=== PATIENT | female | born 1960 | race Caucasian/White ===

== ENCOUNTER → 2024-03-13 | Outpatient (CLI) | payer MEDICAID, SELFPAY ==
--- NOTE | 2024-03-13 13:00 | XR_ITS ---
Examination: MRI abdomen with intravenous contrast. MRI abdomen without intravenous contrast. Date and time of exam: March 13, 2024 1342 hours INDICATIONS: CT abdomen pelvis November 08, 2023 15 mm indeterminate left adrenal nodule Technique: Multiple axial, sagittal and coronal sections of the abdomen obtained. Transverse images, TR 6020, TE 107. T1 weighted transverse images, TR 582, TE 9.5. T2-weighted sagittal images, TR 4000, TE 105. T2-weighted sagittal images, TR 4000, TE 5. Coronal images, TR 4210, TE 107. Axial and coronal images are obtained post 18 cc intravenous injection, gadolinium. Findings: Hepatomegaly 18 cm No intrahepatic biliary tract dilatation Absent gallbladder No extrahepatic biliary tract distention 12 mm left adrenal nodule with mild enhancement on the postcontrast images No pericaval periaortic lymphadenopathy No hydronephrosis No ascites IMPRESSION: 12 mm probably benign left adrenal nodule, recommend 6 month follow-up CT abdomen postcontrast
== END | disposition home or self-care (01) ==
LOC: SMRI 12:43
PROVIDERS: Referring Provider Nurse Practitioner Family; Visit Provider Nurse Practitioner Family
DX: E27.9 Disorder of adrenal gland, unspecified (principal)
CPT/HCPCS: 74183; A9579

== ENCOUNTER → 2025-01-21 | Outpatient (CLI) | payer MEDICAID, SELFPAY ==
--- NOTE | 2025-01-21 07:00 | XR_ITS ---
Examination: MRI cervical spine without intravenous contrast Date and time of exam: January 21, 2025, 0736 hours, comparison May 20, 2021 INDICATIONS: Neck pain 10 years Technique: Multiple axial and sagittal sections of the cervical spine to been obtained. T2 weighted sagittal sections, TR 3, 270, TE 117 T1-weighted sagittal sections, TR 500, TE 11 T1-weighted axial sections, TR 607, TE 12, axial sections TR 18, TE 27 and T2 weighted transverse sections, TR 3920, TE 122. Findings: Adequate alignment cervical vertebral bodies No cervical fracture Diffuse cervical disc desiccation Moderate degenerative disc disease C5-C6 and C6-C7 Normal callosomarginal cervical cord C2-C3 no disc protrusion C3-C4 no disc protrusion C4-C5 no disc protrusion C5-C6 3 mm central subarticular osteophyte disc complex, moderate bilateral neural foraminal stenosis C6-C7 2 mm central subarticular osteophyte disc complex, moderate left neural foraminal stenosis C7-T1 no disc protrusion IMPRESSION: Moderate degenerative disc disease C5-C6, C6-C7 C5-C6 3 mm central subarticular osteophyte disc complex, moderate bilateral neural foraminal stenosis C6-C7 2 mm central subarticular osteophyte disc complex, moderate left neuroforaminal stenosis
--- NOTE | 2025-01-21 07:30 | XR_ITS ---
Examination: MRI lumbar spine without contrast Date and time of exam: January 21, 2025, 0736 hours, comparison 10/19/2021 INDICATIONS: Low back pain radiating to the right leg 10 years Technique: Multiple MRI axial and sagittal sections lumbar spine. Sagittal T2-weighted images, TR 3500, TE 118 T1 weighted transverse sections, TR 688 T8.5, T2-weighted sagittal sections T1 weighted sagittal sections TR 621, TE 30 T2 axial sections, TR 4, 190, TE 84. 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
== END | disposition home or self-care (01) ==
LOC: SMRI 07:03
PROVIDERS: PCP Nurse Practitioner Family; Referring Provider Nurse Practitioner Family; Visit Provider Nurse Practitioner Family
DX: M50.322 Other cervical disc degeneration at C5-C6 level (principal); M25.78 Osteophyte, vertebrae; M51.370 Other intervertebral disc degeneration, lumbosacral region with discogenic back pain only; M51.360 Other intervertebral disc degeneration, lumbar region with discogenic back pain only; G89.29 Other chronic pain
CPT/HCPCS: 72141; 72148